=== PATIENT | female | born 1960 | race Caucasian/White ===

== ENCOUNTER 2019-08-15 18:43 | Emergency (ER) | payer MEDICAID ==
[~2019-08-15] VITALS: Ht 162.6 cm; Wt 77.0 kg
[~2019-08-15 18:43] MED LIST: AMLO5TAB4 PO; GABA300C PO; OMEP40CA12 PO
[2019-08-15] MEDS ORDERED: SODIUM CHLORIDE 0.9% 1,000 ML IV ONE (19:22)
[2019-08-15] MEDS ORDERED: ONDANSETRON HCL 4MG/2ML INJ IV STA (19:22)
[2019-08-15 19:51] LABS: BASOPHILS % 0.2 % (0.0-2.0); HEMATOCRIT. 44.4 % (36.0-48.0); HEMOGLOBIN. 14.4 g/dL (12.0-16.0); LYMPHOCYTES % 14.3 % (20.0-50.0); MEAN CORPUSCULAR HEMOGLOBIN 27.3 pg (28.0-32.0); MEAN CORPUSCULAR VOLUME 83.8 fL (81.0-99.0); MEAN PLATELET VOLUME 8.6 fl (7.4-10.4); MONOCYTES % 8.1 % (2.0-8.0); NEUTROPHILS % 77.4 % (40.0-76.0); PLATELET 216 x1000/uL (130-400); RED CELL DISTRIBUTION WIDTH 20.8 % (11.6-14.6)
[2019-08-15 19:55] LABS: CHLORIDE 109 mEq/L (98-107)
[2019-08-15] MEDS ORDERED: POTASSIUM CHLORIDE 20MEQ TABLET SR PO ONE (20:00)
[2019-08-15 21:53] VITALS: BP 121/71
== END 2019-08-15 21:54 | disposition home or self-care (01) ==
LOC: ER 18:46
DX: R11.2 Nausea with vomiting, unspecified (principal); I10 Essential (primary) hypertension; Z79.899 Other long term (current) drug therapy
CPT/HCPCS: 36415; 80053; 83690; 85025; 96361; 96374; 99283; J2405; J7030

== ENCOUNTER 2019-09-15 11:32 | Emergency (ER) | payer MEDICAID ==
[~2019-09-15] VITALS: Ht 162.6 cm; Wt 73.0 kg
[2019-09-15] MEDS ORDERED: SODIUM CHLORIDE 0.9% 1,000 ML IV ONE (13:12)
[2019-09-15 14:04] LABS: CHLORIDE 112 mEq/L (98-107)
[2019-09-15 14:08] LABS: ETHANOL BLOOD < 10 mg/dL
[2019-09-15 14:10] LABS: BASOPHILS % 0.6 % (0.0-2.0); EOSINOPHILS % 1.4 % (0.0-5.0); HEMATOCRIT. 35.7 % (36.0-48.0); HEMOGLOBIN. 11.6 g/dL (12.0-16.0); LYMPHOCYTES % 23.6 % (20.0-50.0); MEAN CORPUSCULAR HEMOGLOBIN 26.9 pg (28.0-32.0); MEAN CORPUSCULAR VOLUME 82.9 fL (81.0-99.0); MEAN PLATELET VOLUME 8.3 fl (7.4-10.4); MONOCYTES % 10.9 % (2.0-8.0); NEUTROPHILS % 63.5 % (40.0-76.0); PLATELET 239 x1000/uL (130-400); RED BLOOD CELL COUNT 4.31 mill/uL (4.2-5.4); RED CELL DISTRIBUTION WIDTH 20.9 % (11.6-14.6)
[2019-09-15 15:05] VITALS: BP 132/89
[2019-09-15] MEDS ORDERED: MAGNESIUM 2 G PREMIX 50 ML IV ONE (15:15)
[2019-09-15] MEDS ORDERED: KCL 10MEQ/50ML PREMIX 50 ML IV ONE (15:15)
[2019-09-15] MEDS ORDERED: POTASSIUM CHLORIDE 20MEQ TABLET SR PO SCH (15:15)
== END 2019-09-15 15:30 | disposition left against medical advice (07) ==
LOC: ER 11:32 → EDBEDREQ 14:15 → EDBEDREQTM 14:15 → ER 15:30 → CANBEDREQ 18:02
DX: R55 Syncope and collapse (principal); S00.81XA Abrasion of other part of head, initial encounter; D64.9 Anemia, unspecified; E87.8 Other disorders of electrolyte and fluid balance, not elsewhere classified; I10 Essential (primary) hypertension; F10.20 Alcohol dependence, uncomplicated; Y90.9 Presence of alcohol in blood, level not specified; Z91.81 History of falling; W01.0XXA Fall on same level from slipping, tripping and stumbling without subsequent striking against object, initial encounter; Y93.89 Activity, other specified; Y92.018 Other place in single-family (private) house as the place of occurrence of the external cause
CPT/HCPCS: 36415; 70450; 71045; 80053; 80320; 83690; 83880; 84484; 85025; 93005; 96360; 96361; 99285; J3480; J7030; G0480

== ENCOUNTER 2019-12-15 14:50 | Emergency (ER) | payer MEDICAID ==
[~2019-12-15] VITALS: Ht 167.6 cm; Wt 77.0 kg
[2019-12-15] MEDS ORDERED: LIDOCAINE HCL 1% 20ML VIAL (Pyxis) INJ INFIL ONE (19:00)
[2019-12-15] MEDS ORDERED: HYDROCODONE/ACETAMINOPHEN 5/325MG TABLET PO ONE (19:15)
[2019-12-15] MEDS ORDERED: CLINDAMYCIN HCL 150MG CAPSULE PO ONE (19:15)
[2019-12-15 20:04] VITALS: BP 127/82
== END 2019-12-15 20:05 | disposition home or self-care (01) ==
LOC: ER 14:50
DX: L03.011 Cellulitis of right finger (principal); I10 Essential (primary) hypertension; J45.909 Unspecified asthma, uncomplicated; Z86.14 Personal history of Methicillin resistant Staphylococcus aureus infection
CPT/HCPCS: 10060; 82962; 93005; 99283; J3490

== ENCOUNTER 2021-07-28 13:04 | Emergency (ER) | payer OTHER ==
[~2021-07-28] VITALS: Ht 157.5 cm; Wt 60.0 kg
[~2021-07-28 13:04] MED LIST changes: -OMEP40CA12 PO; +OMEP40CA20 PO
[2021-07-28 14:16] VITALS: BP 116/87
[2021-07-28 15:33] LABS: CHLORIDE 115 mEq/L (98-107)
[2021-07-28 17:13] LABS: BASOPHILS % 0.8 % (0.0-2.0); EOSINOPHILS % 2.3 % (0.0-5.0); HEMATOCRIT. 41.3 % (36.0-48.0); HEMOGLOBIN. 13.2 g/dL (12.0-16.0); LYMPHOCYTES % 31.2 % (20.0-50.0); MEAN CORPUSCULAR HEMOGLOBIN 31.4 pg (28.0-32.0); MEAN CORPUSCULAR VOLUME 98.4 fL (81.0-99.0); MEAN PLATELET VOLUME 7.8 fl (7.4-10.4); MONOCYTES % 14.3 % (2.0-8.0); NEUTROPHILS % 51.4 % (40.0-76.0); PLATELET 177 x1000/uL (130-400); RED BLOOD CELL COUNT 4.19 mill/uL (4.2-5.4); RED CELL DISTRIBUTION WIDTH 17.6 % (11.6-14.6)
== END 2021-07-28 21:19 | disposition home or self-care (01) ==
LOC: ER 13:04
DX: L03.116 Cellulitis of left lower limb (principal); I10 Essential (primary) hypertension; J40 Bronchitis, not specified as acute or chronic; Z86.14 Personal history of Methicillin resistant Staphylococcus aureus infection; Z87.01 Personal history of pneumonia (recurrent)
CPT/HCPCS: 36415; 80053; 85025; 99283

== ENCOUNTER 2021-12-08 14:41 | Emergency (ER) | payer OTHER ==
[~2021-12-08] VITALS: Ht 165.1 cm; Wt 50.0 kg
[2021-12-08 14:44] VITALS: BP 114/68
[2021-12-08] MEDS ORDERED: IBUPROFEN 600MG TABLET PO ONE (16:45)
[2021-12-08] MEDS ORDERED: BACITRACIN ZINC OINT UDPKT TOP ONE (16:45)
[2021-12-08] MEDS ORDERED: TETANUS, DIPHTHERIA, PERTUSSIS VAC/PF 0.5ML (>10YR OLD) IM ONE (16:45)
[2021-12-08] MEDS ORDERED: IBUP-2029 MT (17:52)
== END 2021-12-08 18:15 | disposition home or self-care (01) ==
LOC: ER 14:41
DX: S01.81XA Laceration without foreign body of other part of head, initial encounter (principal); S09.8XXA Other specified injuries of head, initial encounter; S61.512A Laceration without foreign body of left wrist, initial encounter; S61.511A Laceration without foreign body of right wrist, initial encounter; S80.01XA Contusion of right knee, initial encounter; F17.210 Nicotine dependence, cigarettes, uncomplicated; J45.909 Unspecified asthma, uncomplicated; I10 Essential (primary) hypertension; W01.0XXA Fall on same level from slipping, tripping and stumbling without subsequent striking against object, initial encounter; Y93.9 Activity, unspecified; Y92.9 Unspecified place or not applicable; Z71.6 Tobacco abuse counseling; Z86.14 Personal history of Methicillin resistant Staphylococcus aureus infection; Z87.01 Personal history of pneumonia (recurrent)
CPT/HCPCS: 73100; 73560; 90715; 99284

== ENCOUNTER 2022-02-07 15:43 | Emergency (ER) | payer OTHER ==
[~2022-02-07] VITALS: Ht 167.6 cm; Wt 43.0 kg
[~2022-02-07 15:43] MED LIST changes: +IBUP-2029 MT
[2022-02-07] MEDS ORDERED: ONDANSETRON HCL 4MG/2ML INJ IV STA (17:39)
[2022-02-07] MEDS ORDERED: DICYCLOMINE 10 MG/5 ML ORAL SYR PO STA (17:39)
[2022-02-07] MEDS ORDERED: MAGNESIUM/ALUMINUM HYDROXIDE/SIMETHICONE 30ML UDC PO STA (17:39)
[2022-02-07] MEDS ORDERED: KETOROLAC 15MG/ML VIAL IV ONE (17:45)
[2022-02-07] MEDS ORDERED: SODIUM CHLORIDE 0.9% 1,000 ML IV ONE (17:45)
[2022-02-07 18:06] LABS: BASOPHILS % 0.5 % (0.0-2.0); EOSINOPHILS % 0.3 % (0.0-5.0); HEMOGLOBIN. 13.2 g/dL (12.0-16.0); LYMPHOCYTES % 33.9 % (20.0-50.0); MEAN CORPUSCULAR HEMOGLOBIN 31.2 pg (28.0-32.0); MEAN CORPUSCULAR VOLUME 94.5 fL (81.0-99.0); MEAN PLATELET VOLUME 7.6 fl (7.4-10.4); MONOCYTES % 9.3 % (2.0-8.0); PLATELET 250 x1000/uL (130-400); RED BLOOD CELL COUNT 4.23 mill/uL (4.2-5.4); RED CELL DISTRIBUTION WIDTH 16.3 % (11.6-14.6)
[2022-02-07 18:13] LABS: INR 1.1; PROTHROMBIN TIME 12.2 sec (9.6-11.0)
[2022-02-07 18:29] LABS: CHLORIDE 110 mEq/L (98-107)
[2022-02-07 19:12] LABS: CLARITY URINE CLOUDY (CLEAR); COLOR URINE YELLOW (YELLOW); KETONES URINE NEGATIVE (NEGATIVE); LEUKOCYTE ESTERASE URINE NEGATIVE (NEGATIVE); NITRITE URINE NEGATIVE (NEGATIVE); OCCULT BLOOD URINE NEGATIVE (NEGATIVE); PH URINE 5.5 (4.5-8.0); PROTEIN URINE TRACE (NEGATIVE); SPECIFIC GRAVITY URINE 1.033 (1.005-1.030)
[2022-02-07] MEDS ORDERED: DICYCLOMINE 10 MG/5 ML ORAL SYR PO NR (19:30)
[2022-02-07] MEDS ORDERED: ONDANSETRON HCL 4MG/2ML INJ IV NR (19:30)
[2022-02-07] MEDS ORDERED: MAGNESIUM/ALUMINUM HYDROXIDE/SIMETHICONE 30ML UDC PO NR (19:30)
[2022-02-08] MEDS ORDERED: DIPHENHYDRAMINE 25MG CAPSULE PO ONE (03:00)
[2022-02-08] MEDS: SERTRALINE HCL 25MG TABLET PO SCH (09:00)
[2022-02-08] MEDS ORDERED: LORAZEPAM 1MG TABLET PO ONE (14:45)
[2022-02-08] MEDS ORDERED: QUETIAPINE FUMARATE 25MG TABLET PO SCH (21:00)
[2022-02-09] MEDS: SERTRALINE HCL 25MG TABLET PO SCH (09:00)
[2022-02-09] MEDS ORDERED: TOPUD PO (09:43)
[2022-02-09 10:23] VITALS: BP 106/79
[2022-02-10] MEDS ORDERED: FAMO-135 MT (00:28)
[2022-02-10] MEDS ORDERED: MAG-55 MT (00:28)
== END 2022-02-09 11:09 | disposition home or self-care (01) ==
LOC: ER 16:26
DX: R10.9 Unspecified abdominal pain (principal)
CPT/HCPCS: 36415; 71045; 74176; 80053; 81003; 84484; 85025; 85610; 93005; 96361; 96374; 96375; 99285; J1885; J2405; J7030

== ENCOUNTER 2022-02-09 17:53 | Emergency (ER) | payer OTHER ==
[~2022-02-09] VITALS: Ht 167.6 cm; Wt 60.0 kg
[~2022-02-09 17:53] MED LIST changes: +TOPUD PO
[2022-02-09 18:25] VITALS: BP 96/69
[2022-02-09] MEDS ORDERED: MAGNESIUM/ALUMINUM HYDROXIDE/SIMETHICONE 30ML UDC PO STA (22:01)
[2022-02-09] MEDS ORDERED: VISCOUS LIDOCAINE 2% 15 ML UDC PO STA (22:01)
[2022-02-09] MEDS ORDERED: FAMOTIDINE 20MG TABLET PO ONE (22:15)
[2022-02-09 23:37] LABS: BASOPHILS % 0.4 % (0.0-2.0); CHLORIDE 106 mEq/L (98-107); EOSINOPHILS % 0.6 % (0.0-5.0); HEMATOCRIT. 38.8 % (36.0-48.0); HEMOGLOBIN. 12.7 g/dL (12.0-16.0); LYMPHOCYTES % 37.8 % (20.0-50.0); MEAN CORPUSCULAR HEMOGLOBIN 31.3 pg (28.0-32.0); MEAN CORPUSCULAR VOLUME 95.4 fL (81.0-99.0); MONOCYTES % 7.5 % (2.0-8.0); NEUTROPHILS % 53.7 % (40.0-76.0); PLATELET 228 x1000/uL (130-400); RED BLOOD CELL COUNT 4.07 mill/uL (4.2-5.4); RED CELL DISTRIBUTION WIDTH 15.8 % (11.6-14.6)
[2022-02-10] MEDS ORDERED: FAMO-135 MT (00:28)
[2022-02-10] MEDS ORDERED: MAG-55 MT (00:28)
== END 2022-02-10 01:45 | disposition home or self-care (01) ==
LOC: ER 17:53
DX: R10.13 Epigastric pain (principal); J40 Bronchitis, not specified as acute or chronic; E05.90 Thyrotoxicosis, unspecified without thyrotoxic crisis or storm; F17.290 Nicotine dependence, other tobacco product, uncomplicated; Z87.01 Personal history of pneumonia (recurrent)
CPT/HCPCS: 36415; 74176; 80053; 85025; 99284

== ENCOUNTER 2022-02-10 01:55 | Emergency (ER) | payer OTHER ==
[~2022-02-10] VITALS: Ht 167.6 cm; Wt 45.0 kg
[~2022-02-10 01:55] MED LIST changes: +FAMO-135 MT; +MAG-55 MT
[2022-02-10 03:08] LABS: CLARITY URINE CLEAR (CLEAR); COLOR URINE YELLOW (YELLOW); KETONES URINE TRACE (NEGATIVE); LEUKOCYTE ESTERASE URINE 1+ (NEGATIVE); NITRITE URINE NEGATIVE (NEGATIVE); OCCULT BLOOD URINE TRACE (NEGATIVE); PROTEIN URINE NEGATIVE (NEGATIVE); SPECIFIC GRAVITY URINE 1.021 (1.005-1.030)
[2022-02-10 03:09] LABS: BASOPHILS % 0.6 % (0.0-2.0); EOSINOPHILS % 0.9 % (0.0-5.0); HEMATOCRIT. 40.5 % (36.0-48.0); HEMOGLOBIN. 13.2 g/dL (12.0-16.0); MEAN CORPUSCULAR HEMOGLOBIN 31.1 pg (28.0-32.0); MEAN CORPUSCULAR VOLUME 95.5 fL (81.0-99.0); MONOCYTES % 8.2 % (2.0-8.0); NEUTROPHILS % 45.3 % (40.0-76.0); PLATELET 219 x1000/uL (130-400); RED BLOOD CELL COUNT 4.24 mill/uL (4.2-5.4); RED CELL DISTRIBUTION WIDTH 15.8 % (11.6-14.6)
[2022-02-10 03:56] LABS: CHLORIDE 109 mEq/L (98-107)
[2022-02-10 04:05] LABS: ETHANOL BLOOD < 10 mg/dL
[2022-02-10 04:09] LABS: *AMPHETAMINES SCREEN URINE NEGATIVE (NEGATIVE); *BARBITURATES SCREEN URINE NEGATIVE (NEGATIVE); *BENZODIAZEPINES SCREEN URINE NEGATIVE (NEGATIVE); *COCAINE SCREEN URINE NEGATIVE (NEGATIVE); CANNABINOID URINE SCREEN NEGATIVE (NEGATIVE); OPIATES URINE SCREEN NEGATIVE (NEGATIVE); PHENCYCLIDINE URINE SCREEN NEGATIVE (NEGATIVE)
[2022-02-10 04:55] LABS: METHADONE URINE SCREEN PRESUMTIVE POSITIVE (NEGATIVE)
[2022-02-10] MEDS: CEPHALEXIN 250MG CAPSULE PO SCH ×2 (09:24→12:46)
[2022-02-10] MEDS ORDERED: SERTRALINE HCL 50MG TABLET PO SCH (09:30)
[2022-02-10] MEDS ORDERED: ASPIRIN 81MG TABLET PO ONE (12:45)
[2022-02-10 15:12] VITALS: BP 109/70
== END 2022-02-10 16:05 | disposition short-term general hospital (02) ==
LOC: ER 02:10
DX: R45.851 Suicidal ideations (principal); N39.0 Urinary tract infection, site not specified; J45.909 Unspecified asthma, uncomplicated; F32.9 Major depressive disorder, single episode, unspecified; Z87.01 Personal history of pneumonia (recurrent); E05.90 Thyrotoxicosis, unspecified without thyrotoxic crisis or storm; F17.290 Nicotine dependence, other tobacco product, uncomplicated; Z79.899 Other long term (current) drug therapy; Z20.822 Contact with and (suspected) exposure to COVID-19
CPT/HCPCS: 36415; 80053; 80305; 80307; 80320; 80329; 81003; 85025; 87426; 99285; C9803; U0003; U0005; Z7610; G0480

== ENCOUNTER 2022-02-28 20:24 | Emergency (ER) | payer OTHER ==
[~2022-02-28] VITALS: Ht 167.6 cm; Wt 64.0 kg
[2022-02-28 20:32] VITALS: BP 122/72
== END 2022-02-28 23:14 | disposition left against medical advice (07) ==
LOC: ER 20:24
DX: Z53.21 Procedure and treatment not carried out due to patient leaving prior to being seen by health care provider (principal)

== ENCOUNTER 2022-03-10 02:12 | Emergency (ER) | payer OTHER ==
[~2022-03-10] VITALS: Ht 160 cm; Wt 59.0 kg
[2022-03-10 02:14] VITALS: BP 134/80
[2022-03-10] MEDS ORDERED: KETOROLAC 30MG/ML VIAL IM STA (03:16)
[2022-03-10] MEDS ORDERED: METH-653 MT (04:48)
[2022-03-10] MEDS ORDERED: IBUP-2029 MT (04:48)
== END 2022-03-10 05:15 | disposition home or self-care (01) ==
LOC: ER 02:12
DX: M54.9 Dorsalgia, unspecified (principal); J45.909 Unspecified asthma, uncomplicated; Z86.39 Personal history of other endocrine, nutritional and metabolic disease
CPT/HCPCS: 72070; 72100; 96372; 99284; J1885

== ENCOUNTER 2022-05-05 16:39 | Inpatient (IN) | payer OTHER ==
[~2022-05-05] VITALS: Ht 167.6 cm; Wt 51.7 kg
[~2022-05-05 16:39] MED LIST changes: +METH-653 MT
[2022-05-05 18:03] LABS: BASOPHILS % 0.6 % (0.0-2.0); EOSINOPHILS % 0.9 % (0.0-5.0); HEMATOCRIT. 39.5 % (36.0-48.0); HEMOGLOBIN. 12.6 g/dL (12.0-16.0); LYMPHOCYTES % 28.5 % (20.0-50.0); MEAN CORPUSCULAR HEMOGLOBIN 28.8 pg (28.0-32.0); MEAN CORPUSCULAR VOLUME 90.2 fL (81.0-99.0); MEAN PLATELET VOLUME 7.3 fl (7.4-10.4); MONOCYTES % 12.3 % (2.0-8.0); NEUTROPHILS % 57.7 % (40.0-76.0); PLATELET 295 x1000/uL (130-400); RED BLOOD CELL COUNT 4.39 mill/uL (4.2-5.4); RED CELL DISTRIBUTION WIDTH 18.1 % (11.6-14.6)
[2022-05-05 18:14] LABS: CHLORIDE 110 mEq/L (98-107)
[2022-05-06 04:30] VITALS: BP 130/83
[2022-05-06] MEDS ORDERED: NALOXONE HCL 0.4MG/ML VIAL IV PRN (06:00)
[2022-05-06] MEDS ORDERED: ZOLPIDEM TARTRATE 5MG TABLET PO PRN (06:00)
[2022-05-06] MEDS: HYDROCODONE/ACETAMINOPHEN 5/325MG TABLET PO PRN ×2 (06:14→15:26)
[2022-05-06 08:00] VITALS: BP 125/78
[2022-05-06] MEDS: ASPIRIN 81MG TABLET PO SCH (08:53)
[2022-05-06] MEDS: ISOSORBIDE MONONITRATE 30MG TABLET SR 24HR PO SCH (08:53)
[2022-05-06] MEDS: METOPROLOL TARTRATE 25MG TABLET PO SCH ×2 (08:53→21:13)
[2022-05-06] MEDS: FAMOTIDINE 20MG TABLET PO SCH ×2 (08:53→16:47)
[2022-05-06] MEDS: NICOTINE 14MG PATCH TD SCH (08:54)
[2022-05-06] MEDS ORDERED: PNEUMOCOCCAL 23-VAL P-SAC VAC 0.5 ML IM ONE (09:00)
[2022-05-06 12:00] VITALS: BP 94/59
[2022-05-06] MEDS ORDERED: REGADENOSON 0.4 MG/5 ML IV SCH (13:00)
[2022-05-06] MEDS ORDERED: IBUPROFEN 400MG TABLET PO PRN (13:45)
[2022-05-06 16:00] VITALS: BP 105/67
[2022-05-06] MEDS ORDERED: ALBUTEROL (0.083%) 2.5MG/3ML NEB HHN PRN (17:00)
[2022-05-06] MEDS ORDERED: SUMATRIPTAN SUCCINATE 6MG/0.5ML VIAL SUBCUT NR (17:00)
[2022-05-06] MEDS ORDERED: IPRATROPIUM/ALBUTEROL 0.5-3(2.5)MG/3ML NEB HHN PRN (17:00)
[2022-05-06] MEDS ORDERED: IPRATROPIUM BROMIDE (0.02%) 0.5MG/2.5ML NEB HHN PRN (17:00)
[2022-05-06 20:00] VITALS: BP 112/62
[2022-05-06] MEDS ORDERED: ASPIRIN 325MG EC TABLET PO NR (21:15)
[2022-05-06 23:52] VITALS: BP 105/51
[2022-05-07 01:02] VITALS: BP 122/78
[2022-05-07] MEDS: HYDROCODONE/ACETAMINOPHEN 5/325MG TABLET PO PRN ×3 (01:04→10:36)
[2022-05-07 04:00] VITALS: BP 127/68
[2022-05-07 07:21] LABS: BASOPHILS % 0.7 % (0.0-2.0); EOSINOPHILS % 1.7 % (0.0-5.0); HEMATOCRIT. 34.7 % (36.0-48.0); HEMOGLOBIN. 11.1 g/dL (12.0-16.0); LYMPHOCYTES % 22.5 % (20.0-50.0); MEAN CORPUSCULAR HEMOGLOBIN 28.5 pg (28.0-32.0); MEAN CORPUSCULAR VOLUME 88.9 fL (81.0-99.0); MEAN PLATELET VOLUME 7.5 fl (7.4-10.4); MONOCYTES % 13.8 % (2.0-8.0); NEUTROPHILS % 61.3 % (40.0-76.0); PLATELET 247 x1000/uL (130-400); RED CELL DISTRIBUTION WIDTH 17.7 % (11.6-14.6)
[2022-05-07 08:00] VITALS: BP 111/61
[2022-05-07] MEDS: ASPIRIN 81MG TABLET PO SCH (08:39)
[2022-05-07] MEDS: FAMOTIDINE 20MG TABLET PO SCH (08:39)
[2022-05-07] MEDS: ISOSORBIDE MONONITRATE 30MG TABLET SR 24HR PO SCH (08:39)
[2022-05-07] MEDS: NICOTINE 14MG PATCH TD SCH (08:40)
[2022-05-07] MEDS: METOPROLOL TARTRATE 25MG TABLET PO SCH (08:40)
[2022-05-07 12:00] VITALS: BP 113/63
== END 2022-05-07 11:45 | disposition left against medical advice (07) | DRG 243 ==
LOC: ER 16:39 → 7WST 23:00 → EDBEDREQTM 23:22 → EDBEDREQ 23:22
PROVIDERS: ADMIT Internal Medicine; ATTEND Internal Medicine
DX: K21.9 Gastro-esophageal reflux disease without esophagitis (principal); C44.90 Unspecified malignant neoplasm of skin, unspecified; R07.89 Other chest pain; E03.9 Hypothyroidism, unspecified; J44.9 Chronic obstructive pulmonary disease, unspecified; Z53.29 Procedure and treatment not carried out because of patient's decision for other reasons; G43.909 Migraine, unspecified, not intractable, without status migrainosus; E05.90 Thyrotoxicosis, unspecified without thyrotoxic crisis or storm; M19.90 Unspecified osteoarthritis, unspecified site; F32.A Depression, unspecified; F17.210 Nicotine dependence, cigarettes, uncomplicated; F41.0 Panic disorder [episodic paroxysmal anxiety]; Z82.49 Family history of ischemic heart disease and other diseases of the circulatory system; Z79.899 Other long term (current) drug therapy
CPT/HCPCS: 36415; 71045; 80053; 80061; 83880; 84484; 85025; 90732; 93005; 99285; J3030

== ENCOUNTER 2023-06-01 14:39 | Emergency (ER) | payer OTHER ==
[~2023-06-01] VITALS: Ht 167.6 cm; Wt 75.0 kg
[2023-06-01] MEDS: IPRATROPIUM BROMIDE (0.02%) 0.5MG/2.5ML NEB HHN STA (14:45)
[2023-06-01] MEDS: ALBUTEROL (0.083%) 2.5MG/3ML NEB HHN STA (14:45)
[2023-06-01] MEDS: SODIUM CHLORIDE 0.9% 1000ML BAG (SEPSIS BOLUS) IV ONE (15:53)
[2023-06-01] MEDS: METHYLPREDNISOLONE SOD SUCC 125MG/2ML (ACT-O-VIAL) IV STA (15:53)
[2023-06-01] MEDS: LEVOFLOXACIN 750MG PREMIX 150 ML IV ONE (15:53)
[2023-06-01 15:55] LABS: BASOPHILS % 0.4 % (0.0-2.0); EOSINOPHILS % 0.2 % (0.0-5.0); HEMATOCRIT. 32.8 % (36.0-48.0); HEMOGLOBIN. 10.4 g/dL (12.0-16.0); LYMPHOCYTES % 9.4 % (20.0-50.0); MEAN CORPUSCULAR HEMOGLOBIN 25.6 pg (28.0-32.0); MEAN CORPUSCULAR HGB CONC 31.8 g/dL (31.0-37.0); MEAN CORPUSCULAR VOLUME 80.6 fL (81.0-99.0); MEAN PLATELET VOLUME 7.1 fl (7.4-10.4); MONOCYTES % 5.8 % (2.0-8.0); NEUTROPHILS % 84.2 % (40.0-76.0); PLATELET 299 x1000/uL (130-400); RED BLOOD CELL COUNT 4.07 mill/uL (4.2-5.4); RED CELL DISTRIBUTION WIDTH 19.4 % (11.6-14.6)
[2023-06-01] MEDS: ASPIRIN 81MG TABLET PO ONE (15:59)
[2023-06-01 16:09] LABS: ALANINE AMINOTRANSFERASE 9 IU/L (10-49); ALBUMIN 3.9 g/dL (3.2-4.8); ASPARTATE AMINOTRANSFERASE 15 IU/L (<34); BILIRUBIN TOTAL < 0.2 mg/dL (0.1-1.0); CALCIUM 9.1 mg/dL (8.7-10.4); CARBON DIOXIDE 23 mEq/L (21-32); CHLORIDE 111 mEq/L (98-107); CREATININE 0.5 mg/dL (0.6-1.0); GLUCOSE 104 mg/dL (70-105); POTASSIUM 3.7 mEq/L (3.5-5.1); PROTEIN TOTAL 6.1 g/dL (6.0-8.3); SODIUM 139 mEq/L (136-145); UREA NITROGEN BLOOD 12 mg/dL (9-23)
[2023-06-01 16:10] LABS: TROPONIN I HIGH SENSITIVITY < 4 ng/L (3.0-34)
[2023-06-01] MEDS ORDERED: ALBUTEROL (0.083%) 2.5MG/3ML NEB ONE (16:13)
[2023-06-01 16:23] VITALS: PULSE 95; RESP 22; O2SAT 95
[2023-06-01 16:32] LABS: CLARITY URINE CLEAR (CLEAR); COLOR URINE YELLOW (YELLOW); GLUCOSE URINE NEGATIVE (NEGATIVE); KETONES URINE TRACE (NEGATIVE); LEUKOCYTE ESTERASE URINE NEGATIVE (NEGATIVE); NITRITE URINE NEGATIVE (NEGATIVE); OCCULT BLOOD URINE TRACE (NEGATIVE); PH URINE 6.5 (4.5-8.0); PROTEIN URINE NEGATIVE (NEGATIVE); SPECIFIC GRAVITY URINE 1.022 (1.005-1.030); UROBILINOGEN URINE 0.2 E.U./dL (0.2-1.0)
[2023-06-01 17:12] LABS: BACTERIA URINE 2+; RBC URINE 0-2 /hpf (0-2); SQUAMOUS EPITHELIAL CELL URINE 1+ /lpf (RARE/1+); WBC URINE 0-2 /hpf (0-2)
[2023-06-01 21:11] VITALS: BP 112/68; PULSE 112; RESP 20; TEMP 98; O2SAT 95
== END 2023-06-01 20:54 | disposition short-term general hospital (02) ==
LOC: ER 14:47 → CANBEDREQ 06-02 20:02
DX: J44.1 Chronic obstructive pulmonary disease with (acute) exacerbation (principal); J40 Bronchitis, not specified as acute or chronic; F32.9 Major depressive disorder, single episode, unspecified; F17.200 Nicotine dependence, unspecified, uncomplicated; Z87.01 Personal history of pneumonia (recurrent); Z20.822 Contact with and (suspected) exposure to COVID-19
CPT/HCPCS: 80053; 81003; 83880; 83605; 85025; 87040; 87086; 84484; 36415; 71045; 93005; 94644; 96365; 96375; 99285; 87426; Z7610 ×3; J2930; J1956; J7030

== ENCOUNTER 2023-07-26 14:17 | Emergency (ER) | payer OTHER ==
[~2023-07-26] VITALS: Ht 167.6 cm; Wt 59.0 kg
[2023-07-26 14:22] VITALS: TEMP 98.7
[2023-07-26 15:03] VITALS: PULSE 86; RESP 18; O2SAT 94
[2023-07-26] MEDS: ALBUTEROL (0.083%) 2.5MG/3ML NEB HHN ONE (15:03)
[2023-07-26] MEDS: IPRATROPIUM/ALBUTEROL 0.5-3(2.5)MG/3ML NEB HHN ONE (15:03)
[2023-07-26] MEDS: PREDNISONE 20MG TABLET PO STA (15:28)
[2023-07-26 15:55] LABS: BASOPHILS % 0.7 % (0.0-2.0); DIFFERENTIAL COMMENT 0; EOSINOPHILS % 0.6 % (0.0-5.0); HEMATOCRIT. 35.4 % (36.0-48.0); HEMOGLOBIN. 10.9 g/dL (12.0-16.0); LYMPHOCYTES % 9.9 % (20.0-50.0); MEAN CORPUSCULAR HEMOGLOBIN 24.3 pg (28.0-32.0); MEAN CORPUSCULAR HGB CONC 30.8 g/dL (31.0-37.0); MEAN CORPUSCULAR VOLUME 79.1 fL (81.0-99.0); MONOCYTES % 9.2 % (2.0-8.0); NEUTROPHILS % 79.6 % (40.0-76.0); PLATELET 245 x1000/uL (130-400); RED BLOOD CELL COUNT 4.48 mill/uL (4.2-5.4); RED CELL DISTRIBUTION WIDTH 18.5 % (11.6-14.6); WHITE BLOOD COUNT 4.1 x1000/uL (4.5-11.0)
[2023-07-26 16:00] VITALS: BP 130/85; PULSE 100; RESP 20
[2023-07-26 16:06] LABS: CHLORIDE 111 mEq/L (98-107); POTASSIUM 3.5 mEq/L (3.5-5.1); SODIUM 140 mEq/L (136-145)
[2023-07-26 16:07] LABS: CALCIUM 9.9 mg/dL (8.7-10.4); CARBON DIOXIDE 22 mEq/L (21-32)
[2023-07-26 16:12] LABS: CREATININE 0.6 mg/dL (0.6-1.0); GLUCOSE 98 mg/dL (70-105); UREA NITROGEN BLOOD 9 mg/dL (9-23)
[2023-07-26 16:15] LABS: TROPONIN I HIGH SENSITIVITY < 4 ng/L (3.0-34)
[2023-07-26] MEDS ORDERED: AZIT250T12 MT (16:33)
[2023-07-26] MEDS ORDERED: P50 MT (16:33)
[2023-07-26] MEDS ORDERED: ALBU6.7H15 INH (16:33)
[2023-07-26] MEDS ORDERED: AZITHROMYCIN 500 MG TABLET PO SCH (16:45)
== END 2023-07-26 16:54 | disposition home or self-care (01) ==
LOC: ER 15:07
DX: J44.1 Chronic obstructive pulmonary disease with (acute) exacerbation (principal); F17.200 Nicotine dependence, unspecified, uncomplicated; Z79.899 Other long term (current) drug therapy
CPT/HCPCS: 80048; 83880; 85025; 85610; 84484; 36415; 71045; 94640; 93005; 99285; J7512; Z7610 ×6

== ENCOUNTER 2023-09-09 21:24 | Emergency (ER) | payer MEDICAID, OTHER ==
[~2023-09-09] VITALS: Ht 167.6 cm; Wt 64.0 kg
[~2023-09-09 21:24] MED LIST changes: +ALBU6.7H15 INH; +AZIT250T12 MT; +P50 MT
[2023-09-09 21:40] VITALS: TEMP 98.4; O2SAT 98
[2023-09-09] MEDS ORDERED: KETOROLAC 30MG/ML VIAL IV STA (22:00)
[2023-09-09] MEDS ORDERED: PANTOPRAZOLE SODIUM 40 MG/VIAL IV STA (22:00)
[2023-09-09] MEDS ORDERED: ONDANSETRON HCL 4MG/2ML INJ IV STA (22:00)
[2023-09-09 22:33] LABS: BASOPHILS % 0.4 % (0.0-2.0); EOSINOPHILS % 1.8 % (0.0-5.0); HEMATOCRIT. 39.6 % (36.0-48.0); HEMOGLOBIN. 12.3 g/dL (12.0-16.0); LYMPHOCYTES % 28.6 % (20.0-50.0); MEAN CORPUSCULAR HGB CONC 31.1 g/dL (31.0-37.0); MEAN CORPUSCULAR VOLUME 80.5 fL (81.0-99.0); MEAN PLATELET VOLUME 7.2 fl (7.4-10.4); MONOCYTES % 7.2 % (2.0-8.0); PLATELET 330 x1000/uL (130-400); RED BLOOD CELL COUNT 4.92 mill/uL (4.2-5.4); RED CELL DISTRIBUTION WIDTH 22.3 % (11.6-14.6); WHITE BLOOD COUNT 9.1 x1000/uL (4.5-11.0)
[2023-09-09 22:34] LABS: ADD RBC MORPHOLOGY YES; DIFFERENTIAL COMMENT 1
[2023-09-09 22:35] LABS: CARBON DIOXIDE 24 mEq/L (21-32); CHLORIDE 112 mEq/L (98-107); POTASSIUM 3.9 mEq/L (3.5-5.1); SODIUM 141 mEq/L (136-145)
[2023-09-09 22:41] LABS: CREATININE 0.8 mg/dL (0.6-1.0); GLUCOSE 112 mg/dL (70-105); UREA NITROGEN BLOOD 13 mg/dL (9-23)
[2023-09-09 22:43] LABS: ALANINE AMINOTRANSFERASE 11 IU/L (10-49); ALBUMIN 4.4 g/dL (3.2-4.8); ASPARTATE AMINOTRANSFERASE 15 IU/L (<34); BILIRUBIN TOTAL < 0.2 mg/dL (0.1-1.0)
[2023-09-09 22:44] LABS: PROTEIN TOTAL 6.6 g/dL (6.0-8.3)
[2023-09-09 22:45] LABS: BILIRUBIN DIRECT < 0.1 mg/dL (<=3.0)
[2023-09-09 22:53] LABS: PLATELET ESTIMATE NORMAL
[2023-09-09 22:55] LABS: ANISOCYTOSIS 2+; OVALOCYTES 1+
[2023-09-10 01:26] LABS: CLARITY URINE CLEAR (CLEAR); COLOR URINE YELLOW (YELLOW); GLUCOSE URINE NEGATIVE (NEGATIVE); KETONES URINE NEGATIVE (NEGATIVE); LEUKOCYTE ESTERASE URINE NEGATIVE (NEGATIVE); NITRITE URINE NEGATIVE (NEGATIVE); OCCULT BLOOD URINE NEGATIVE (NEGATIVE); PH URINE 6.5 (4.5-8.0); PROTEIN URINE NEGATIVE (NEGATIVE); SPECIFIC GRAVITY URINE 1.011 (1.005-1.030); UROBILINOGEN URINE 0.2 E.U./dL (0.2-1.0)
[2023-09-10 01:30] VITALS: BP 125/82; PULSE 87; RESP 16
== END 2023-09-10 01:41 | disposition home or self-care (01) ==
LOC: ER 21:24
DX: R05.9 Cough, unspecified (principal); R10.9 Unspecified abdominal pain; J44.9 Chronic obstructive pulmonary disease, unspecified; Z79.899 Other long term (current) drug therapy
CPT/HCPCS: 80076; 80048; 83605; 83690; 85025; 36415; 71045; 99284; 81003; Z7610

== ENCOUNTER 2023-11-06 01:49 | Inpatient (IN) | payer OTHER ==
[~2023-11-06] VITALS: Ht 170.2 cm; Wt 60.8 kg
[2023-11-06] MEDS: METHYLPREDNISOLONE SOD SUCC 125MG/2ML (ACT-O-VIAL) IV ONE (03:03)
[2023-11-06 03:21] LABS: CHLORIDE 109 mEq/L (98-107); POTASSIUM 3.6 mEq/L (3.5-5.1); SODIUM 143 mEq/L (136-145)
[2023-11-06 03:22] LABS: BASOPHILS % 0.5 % (0.0-2.0); CALCIUM 9.6 mg/dL (8.7-10.4); CARBON DIOXIDE 30 mEq/L (21-32); DIFFERENTIAL COMMENT 0; EOSINOPHILS % 0.8 % (0.0-5.0); HEMATOCRIT. 37.9 % (36.0-48.0); HEMOGLOBIN. 11.3 g/dL (12.0-16.0); LYMPHOCYTES % 44.6 % (20.0-50.0); MEAN CORPUSCULAR HEMOGLOBIN 24.5 pg (28.0-32.0); MEAN CORPUSCULAR HGB CONC 29.8 g/dL (31.0-37.0); MEAN CORPUSCULAR VOLUME 82.3 fL (81.0-99.0); MEAN PLATELET VOLUME 8.1 fl (7.4-10.4); MONOCYTES % 11.2 % (2.0-8.0); NEUTROPHILS % 42.9 % (40.0-76.0); PLATELET 282 x1000/uL (130-400); RED BLOOD CELL COUNT 4.61 mill/uL (4.2-5.4); RED CELL DISTRIBUTION WIDTH 21.8 % (11.6-14.6); WHITE BLOOD COUNT 4.3 x1000/uL (4.5-11.0)
[2023-11-06 03:27] LABS: CREATININE 0.7 mg/dL (0.6-1.0); GLUCOSE 81 mg/dL (70-105); UREA NITROGEN BLOOD 11 mg/dL (9-23)
[2023-11-06 03:59] VITALS: PULSE 75; RESP 18; O2SAT 96
[2023-11-06] MEDS: IPRATROPIUM/ALBUTEROL 0.5-3(2.5)MG/3ML NEB HHN ONE (03:59)
[2023-11-06] MEDS: ALBUTEROL (0.083%) 2.5MG/3ML NEB HHN ONE (04:00)
[2023-11-06 10:30] VITALS: BP 92/44; PULSE 88; RESP 18; TEMP 36.696
[2023-11-06 12:00] VITALS: BP 92/44; PULSE 88; RESP 18; TEMP 36.6696; O2SAT 99
[2023-11-06] MEDS ORDERED: IPRATROPIUM/ALBUTEROL 0.5-3(2.5)MG/3ML NEB HHN PRN (12:00)
[2023-11-06] MEDS ORDERED: ACETAMINOPHEN 325MG TABLET PO PRN (12:00)
[2023-11-06] MEDS: METHYLPREDNISOLONE SOD SUCC 40MG/ML (ACT-O-VIAL) IV SCH (12:48)
[2023-11-06] MEDS: ENOXAPARIN 40MG/0.4ML SYR SUBCUT SCH (12:53)
[2023-11-06] MEDS: FAMOTIDINE 20MG TABLET PO SCH (13:02)
[2023-11-06] MEDS: GABAPENTIN 300MG CAPSULE PO SCH (14:29)
[2023-11-06 16:00] VITALS: BP 97/55; PULSE 82; RESP 18; TEMP 36.78072; O2SAT 100
[2023-11-06 20:00] VITALS: BP 106/69; PULSE 75; RESP 20; TEMP 36.22512; O2SAT 93
[2023-11-06] MEDS: IPRATROPIUM/ALBUTEROL 0.5-3(2.5)MG/3ML NEB HHN SCH (20:00)
[2023-11-06] MEDS: PANTOPRAZOLE SODIUM 40 MG/VIAL IV SCH (21:25)
[2023-11-06 21:56] VITALS: PULSE 77; RESP 18; O2SAT 95
[2023-11-06] MEDS: LEVOFLOXACIN 500MG TABLET PO SCH (21:57)
[2023-11-07] VITALS (9 sets, daily range): BP systolic 102–143; BP diastolic 61–85; PULSE 70–99; RESP 16–20; TEMP 36.33624–36.55848; O2SAT 80–99
[2023-11-07] MEDS ORDERED: LEVOFLOXACIN 500MG TABLET PO SCH (11:00)
[2023-11-07] MEDS ORDERED: PRED5TAB MT (17:14)
[2023-11-07] MEDS ORDERED: PRED10TA MT (17:14)
[2023-11-07] MEDS ORDERED: P20 MT (17:14)
[2023-11-07] MEDS: GUAIFENESIN-DM 200MG-20MG/10ML UDC PO PRN (21:31)
[2023-11-08] VITALS (10 sets, daily range): BP systolic 114–137; BP diastolic 58–80; PULSE 66–83; RESP 16–20; TEMP 35.66952–37.00296; O2SAT 78–99
[2023-11-08] MEDS: PREDNISONE 20MG TABLET PO SCH (09:01)
[2023-11-08 15:55] LABS: BG BASE EXCESS 2.4 mmol/L (-2.0-3.0); BG CARBOXYHEMOGLOBIN 0.7 % (0.5-1.5); BG DEOXYHEMOGLOBIN 6.7 % (0.0-5.0); BG FRACTION INSPIRED OXYGEN 21; BG HCO3 ACT 25.8 mmol/L (21.0-28.0); BG METHEMOGLOBIN 0.3 % (0.5-1.5); BG OXYGEN SATURATION 93.2 % (94.0-98.0); BG OXYHEMOGLOBIN 92.3 % (94.0-98.0); BG PCO2 35.3 mmHg (32.0-45.0); BG PH 7.481 (7.350-7.450); BG PO2 67.9 mmHg (83.0-108.0); BG SAMPLE SITE LEFT BRACHIAL; BG VENT MODE ROOM AIR
[2023-11-09] VITALS: BP 112/66; PULSE 74; RESP 18; TEMP 36.78072; O2SAT 98
[2023-11-09 04:00] VITALS: BP 120/72; PULSE 76; RESP 18; TEMP 36.55848; O2SAT 96
[2023-11-09] MEDS: PANTOPRAZOLE 40MG DR TABLET PO SCH (08:53)
[2023-11-09 12:06] VITALS: BP 122/78; PULSE 74; TEMP 98; O2SAT 98
== END 2023-11-09 13:20 | disposition home or self-care (01) | DRG 140 ==
LOC: ER 01:49 → 5WST 04:22 → EDBEDREQTM 04:30 → 6EST 10:26
PROVIDERS: ADMIT Internal Medicine; ATTEND Internal Medicine
DX: J44.1 Chronic obstructive pulmonary disease with (acute) exacerbation (principal); J96.01 Acute respiratory failure with hypoxia; J84.9 Interstitial pulmonary disease, unspecified; J45.901 Unspecified asthma with (acute) exacerbation; G89.29 Other chronic pain; G62.9 Polyneuropathy, unspecified; Z20.822 Contact with and (suspected) exposure to COVID-19; M54.9 Dorsalgia, unspecified; F17.210 Nicotine dependence, cigarettes, uncomplicated; Z79.899 Other long term (current) drug therapy; Z82.49 Family history of ischemic heart disease and other diseases of the circulatory system
CPT/HCPCS: 36415; 36600; 71045; 80048; 82375; 82805; 83880; 85025; 87426; 93005; 94618; 94640; 99285; J1650; J2470; J2919; J2920; J7512

== ENCOUNTER 2024-08-22 15:57 | Emergency (ER) | payer OTHER ==
[~2024-08-22] VITALS: Ht 165.1 cm; Wt 52.0 kg
[~2024-08-22 15:57] MED LIST changes: -AMLO5TAB4 PO; +AMLO5TAB5 PO; +P20 MT; -P50 MT; +PRED10TA MT; +PRED5TAB MT
[2024-08-22 16:18] VITALS: BP 94/62; PULSE 67; RESP 16; TEMP 36.8; O2SAT 97
[2024-08-22] MEDS: ONDANSETRON 4MG ODT PO STA (17:27)
[2024-08-22] MEDS: MAGNESIUM/ALUMINUM HYDROXIDE/SIMETHICONE 30ML UDC PO STA (17:27)
[2024-08-22 18:57] LABS: BASOPHILS % 0.5 % (0.0-2.0); EOSINOPHILS % 1.8 % (0.0-5.0); HEMATOCRIT. 40.2 % (36.0-48.0); HEMOGLOBIN. 12.8 g/dL (12.0-16.0); LYMPHOCYTES % 37.3 % (20.0-50.0); MEAN CORPUSCULAR HEMOGLOBIN 27.6 pg (28.0-32.0); MEAN CORPUSCULAR HGB CONC 31.9 g/dL (31.0-37.0); MEAN CORPUSCULAR VOLUME 86.4 fL (81.0-99.0); MEAN PLATELET VOLUME 7.5 fl (7.4-10.4); MONOCYTES % 7.3 % (2.0-8.0); NEUTROPHILS % 53.1 % (40.0-76.0); PLATELET 230 x1000/uL (130-400); RED BLOOD CELL COUNT 4.65 mill/uL (4.2-5.4); RED CELL DISTRIBUTION WIDTH 17.7 % (11.6-14.6); WHITE BLOOD COUNT 4.5 x1000/uL (4.5-11.0)
[2024-08-22 19:03] LABS: CHLORIDE 109 mEq/L (98-107); SODIUM 141 mEq/L (136-145)
[2024-08-22 19:04] LABS: CARBON DIOXIDE 23 mEq/L (21-32)
[2024-08-22 19:05] LABS: CALCIUM 10.5 mg/dL (8.7-10.4)
[2024-08-22 19:09] LABS: CREATININE 0.8 mg/dL (0.6-1.0)
[2024-08-22 19:10] LABS: GLUCOSE 84 mg/dL (70-105); UREA NITROGEN BLOOD 16 mg/dL (9-23)
[2024-08-22 19:11] LABS: ALANINE AMINOTRANSFERASE 13 IU/L (10-49); ALBUMIN 4.8 g/dL (3.2-4.8); ASPARTATE AMINOTRANSFERASE 17 IU/L (<34)
[2024-08-22 19:12] LABS: BILIRUBIN DIRECT < 0.1 mg/dL (<=3.0); BILIRUBIN TOTAL 0.2 mg/dL (0.1-1.0); PROTEIN TOTAL 6.8 g/dL (6.0-8.3)
[2024-08-22 19:13] LABS: TROPONIN I HIGH SENSITIVITY < 4 ng/L (3.0-34)
[2024-08-22] MEDS ORDERED: ONDA-239 PO (21:06)
== END 2024-08-22 21:00 | disposition left against medical advice (07) ==
LOC: ER 15:57
DX: R11.2 Nausea with vomiting, unspecified (principal); F41.9 Anxiety disorder, unspecified; F32.A Depression, unspecified; Z79.52 Long term (current) use of systemic steroids; Z90.710 Acquired absence of both cervix and uterus; Z79.899 Other long term (current) drug therapy
CPT/HCPCS: 80076; 80048; 83690; 85025; 85610; 84484; 36415; 71045; 74176; 76705; 93005; 99285; Q0162; Z7610; A4606

== ENCOUNTER 2024-09-04 23:41 | Inpatient (IN) | payer OTHER ==
[~2024-09-04] VITALS: Ht 167.6 cm; Wt 55.8 kg
[~2024-09-04 23:41] MED LIST changes: +ONDA-239 PO
[2024-09-05] MEDS: ONDANSETRON 4MG ODT PO STA (00:49)
[2024-09-05 04:24] LABS: CLARITY URINE CLEAR (CLEAR); COLOR URINE YELLOW (YELLOW); GLUCOSE URINE NEGATIVE (NEGATIVE); KETONES URINE TRACE (NEGATIVE); LEUKOCYTE ESTERASE URINE NEGATIVE (NEGATIVE); NITRITE URINE NEGATIVE (NEGATIVE); OCCULT BLOOD URINE 1+ (NEGATIVE); PH URINE 5.5 (4.5-8.0); PROTEIN URINE NEGATIVE (NEGATIVE); SPECIFIC GRAVITY URINE 1.029 (1.005-1.030); UROBILINOGEN URINE 1.0 E.U./dL (0.2-1.0)
[2024-09-05] MEDS: SODIUM CHLORIDE 0.9% 1,000 ML IV ONE (04:43)
[2024-09-05 04:51] LABS: BASOPHILS % 0.5 % (0.0-2.0); EOSINOPHILS % 0.1 % (0.0-5.0); HEMATOCRIT. 38.2 % (36.0-48.0); HEMOGLOBIN. 11.9 g/dL (12.0-16.0); LYMPHOCYTES % 30.5 % (20.0-50.0); MEAN PLATELET VOLUME 7.6 fl (7.4-10.4); MONOCYTES % 9.9 % (2.0-8.0); NEUTROPHILS % 59.0 % (40.0-76.0); PLATELET 219 x1000/uL (130-400); RED BLOOD CELL COUNT 4.45 mill/uL (4.2-5.4); RED CELL DISTRIBUTION WIDTH 18.1 % (11.6-14.6)
[2024-09-05 05:07] LABS: HYALINE CASTS URINE 0-5 /lpf
[2024-09-05 05:09] LABS: CREATININE 0.9 mg/dL (0.6-1.0); UREA NITROGEN BLOOD 22 mg/dL (9-23)
[2024-09-05 05:10] LABS: RBC URINE 0-2 /hpf (0-2); WBC URINE 0-2 /hpf (0-2)
[2024-09-05 05:11] LABS: ASPARTATE AMINOTRANSFERASE 16 IU/L (<34); BILIRUBIN DIRECT < 0.1 mg/dL (<=3.0); BILIRUBIN TOTAL < 0.2 mg/dL (0.1-1.0); PROTEIN TOTAL 5.9 g/dL (6.0-8.3)
[2024-09-05 05:14] LABS: SQUAMOUS EPITHELIAL CELL URINE FEW /lpf (RARE/1+)
[2024-09-05 05:16] LABS: BACTERIA URINE TRACE
[2024-09-05 08:00] VITALS: BP 123/72; PULSE 58; RESP 18; TEMP 36.8; O2SAT 97
[2024-09-05] MEDS ORDERED: ACETAMINOPHEN 325MG TABLET PO PRN (08:30)
[2024-09-05] MEDS: GABAPENTIN 300MG CAPSULE PO SCH (09:39)
[2024-09-05] MEDS: METHOCARBAMOL 750MG TABLET PO SCH (09:39)
[2024-09-05] MEDS: AMLODIPINE 5MG TABLET PO SCH (09:39)
[2024-09-05] MEDS: PANTOPRAZOLE SODIUM 40 MG/VIAL IV SCH (09:39)
[2024-09-05] MEDS: POTASSIUM CHLORIDE 20MEQ/PACKET PO NR (09:40)
[2024-09-05 09:49] VITALS: BP 123/72; PULSE 69; RESP 16; TEMP 36.8
[2024-09-05 12:00] VITALS: BP 90/57; PULSE 56; RESP 16; TEMP 36.3; O2SAT 96
[2024-09-05] MEDS: ONDANSETRON HCL 4MG/2ML INJ IV PRN (13:39)
[2024-09-05 16:00] VITALS: BP 93/58; PULSE 56; RESP 16; TEMP 36.3; O2SAT 95
[2024-09-05] MEDS ORDERED: IPRATROPIUM/ALBUTEROL 0.5-3(2.5)MG/3ML NEB HHN PRN (16:00)
[2024-09-05 20:00] VITALS: BP 95/54; PULSE 64; RESP 16; TEMP 36.9; O2SAT 98
[2024-09-05] MEDS: PROCHLORPERAZINE 10MG/2ML VIAL IV PRN (20:35)
[2024-09-06] VITALS: BP 95/60; PULSE 62; RESP 16; TEMP 36.5; O2SAT 96
[2024-09-06 04:00] VITALS: BP 108/67; PULSE 53; RESP 16; TEMP 36.6; O2SAT 95
[2024-09-06 08:00] VITALS: BP 97/60; PULSE 50; RESP 18; TEMP 36.5; O2SAT 98
[2024-09-06 08:30] VITALS: PULSE 59
[2024-09-06 09:47] LABS: CREATININE 0.7 mg/dL (0.6-1.0); UREA NITROGEN BLOOD 13 mg/dL (9-23)
[2024-09-06 11:58] VITALS: BP 95/60; PULSE 60; TEMP 98.3; O2SAT 97
[2024-09-06 12:00] VITALS: BP 95/60; PULSE 60; RESP 18; TEMP 36.8; O2SAT 97
[2024-09-06] MEDS ORDERED: AMLO5TAB5 PO (12:36)
[2024-09-06] MEDS ORDERED: TOPUD PO (12:36)
[2024-09-06] MEDS ORDERED: OMEP40CA20 PO (12:36)
== END 2024-09-06 13:23 | disposition home or self-care (01) ==
LOC: ER 23:41 → 8EST 09-05 05:34 → EDBEDREQ 09-05 05:37 → EDBEDREQTM 09-05 05:37 → ENRESERV 09-05 05:52
PROVIDERS: ADMIT Internal Medicine; ATTEND Internal Medicine
DX: K82.8 Other specified diseases of gallbladder (principal); F17.210 Nicotine dependence, cigarettes, uncomplicated; F32.A Depression, unspecified; F41.9 Anxiety disorder, unspecified; I10 Essential (primary) hypertension; Z59.01 Sheltered homelessness; Z82.49 Family history of ischemic heart disease and other diseases of the circulatory system
CPT/HCPCS: 36415; 76705; 80048; 80076; 81003; 85025; 99285; J0780; J2405; J2470; J7030; Q0162